=== PATIENT | male | born 1995 ===

== ENCOUNTER 2024-10-28 22:46 | Emergency (ER) | payer SELFPAY ==
[~2024-10-28] VITALS: Ht 167.6 cm; Wt 79.5 kg
[2024-10-29 05:53] VITALS: BP 120/85; PULSE 81; RESP 16; TEMP 98.005280; O2SAT 99
== END 2024-10-29 06:01 | disposition home or self-care (01) ==
LOC: EMS 23:16 → EDBD 23:16 → EMS 10-29 06:01
DX: F19.10 Other psychoactive substance abuse, uncomplicated (principal); Z98.890 Other specified postprocedural states
CPT/HCPCS: 99283; Z7502